=== PATIENT | male | born 1990 | race Caucasian/White ===

== ENCOUNTER 2016-09-15 14:39 | Emergency (ER) | payer BC ==
--- NOTE | 2016-09-15 14:45 | EDM.PDOC ---
ED HPI Trauma - General Chief Complaint: Upper Extremity Injury/Pain Stated Complaint: RT HAND Time Seen by Provider: 09/15/16 14:45 Source: Reports: Patient, Old records, RN, RN notes reviewed History Limitations: Reports: No limitations - History of Present Illness INITIAL COMMENTS - FREE TEXT/NARRATIVE: Arrives by POV with c/o right hand pain sustained apprx. 20 mins. 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 Denies any other injury. Symptom Onset Date: 09/15/16 Symptom Onset Time: 15:25 Occurred When: just prior to arrival Method of Injury: direct blow Severity: severe Pain/Injury Location: Reports: upper extremity, right Consciousness: Reports: no loss of consciousness, remembers incident Associated Symptoms: Reports: no other symptoms Allergies/ADRs: Allergies amphetamine aspartate [From Adderall] Allergy (Verified 09/15/16 14:45) Hallucinations amphetamine sulfate [From Adderall] Allergy (Verified 09/15/16 14:45) Hallucinations dextroamphetamine saccharate [From Adderall] Allergy (Verified 09/15/16 14:45) Hallucinations dextroamphetamine sulfate [From Adderall] Allergy (Verified 09/15/16 14:45) Hallucinations eszopiclone [From Lunesta] Allergy (Verified 09/15/16 14:45) Vomiting Home Medications: Ambulatory Orders . [No Known Home Meds] 09/15/16 [Confirmed 09/15/16] Past Medical History Psychiatric History: Reports: Addiction, Depression, Suicide attempt, Suicidal ideation Social & Family History - Family History Family Medical History: Noncontributory - Tobacco Use Years of Tobacco use: 10 Second Hand Smoke Exposure: Yes - Alcohol Use Days Per Week of Alcohol Use: 0 Number of Drinks Per Day: 6 Total Drinks Per Week: 0 - Recreational Drug Use Recreational Drug Use: No Recreational Drug Type: Reports: Marijuana/Hashish, Methamphetamine - Living Situation & Occupation Living situation: Reports: with family Occupation: unemployed Review of Systems - Review of Systems Review Of Systems: ROS reveals no pertinent complaints other than HPI. Trauma Exam - Physical Exam Exam: See Below Exam Limited By: No limitations General Appearance: Reports: alert, WD/WN, no apparent distress Head: Reports: atraumatic, normocephalic Throat/Mouth: Reports: Normal voice, No airway compromise Neck: Reports: normal inspection Respiratory Exam: Reports: no respiratory distress Cardiovascular: Reports: normal peripheral pulses Back: Reports: normal inspection Extremities: Reports: bony-point tenderness (Rt hand overlying the base of the 5th MC, with local bruising and swelling, skin is intact), pain with movement, tenderness Neurologic: Reports: no motor/sensory deficits, alert, normal mood/affect, oriented x 3 ED TRAUMA EXTREMITY PROCEDURES - Splinting Right Upper Extremity Splint site: Rt hand/wrist Pre-procedure NV status: normal Post-procedure NV status: normal Splint material: fiberglass Splint design: volar Applied & form fitted by: provider Provider post-splint application NV check: NV status normal, good position Complications: No Course - Vital Signs Last Recorded V/S: Last Vital Signs Temp 36.6 C 09/15/16 14:47 Pulse 92 09/15/16 14:47 Resp 16 09/15/16 14:47 BP 140/83 09/15/16 14:47 Pulse Ox 100 09/15/16 14:47 - Radiology Interpretation Free Text/Narrative:: Xray Rt Hand: comminuted, nondisplaced fracture of base Rt 5th MC, see Rad. report. Departure - Departure Time of Disposition: 15:38 Disposition: Home, Self-Care 01 Condition: good Clinical Impression: Closed nondisplaced fracture of fifth metacarpal bone of right hand Qualifiers: Encounter type: initial encounter Metacarpal location: base Qualified Code(s): S62.346A - Nondisplaced fracture of base of fifth metacarpal bone, right hand, initial encounter for closed fracture Instructions: Metacarpal Fracture, [id number] Forms: ED Department Discharge Additional Instructions: Rx: Tramadol 50mg Do not remove splint. Call [facility] today or tomorrow to schedule an appointment for your Right 5th Metacarpal Fracture.
[2016-09-15 14:48] VITALS: BP 140/83
--- NOTE | 2016-09-15 15:11 | CR ---
Clinical history: 25-year-old male pain and swelling ulnar aspect right hand (injury). Interpretation: Abnormal. Comminuted, slightly impacted but anatomically aligned fracture base of the fifth metacarpal hand wi th overlying soft tissue swelling. No sign of other fracture or dislocation right hand or wrist. No foreign bodies.
[2016-09-15] MEDS ORDERED: Acetaminophen 325 MG Tab PO ONE (15:45)
[2016-09-15] MEDS ORDERED: traMADol 50 MG Tab PO ONE (15:45)
== END 2016-09-15 16:08 | disposition home or self-care (01) ==
LOC: DL.ED 14:39
DX: S62.346A Nondisplaced fracture of base of fifth metacarpal bone, right hand, initial encounter for closed fracture (principal); F32.9 Major depressive disorder, single episode, unspecified; Z88.8 Allergy status to other drugs, medicaments and biological substances; Z88.2 Allergy status to sulfonamides; Z88.6 Allergy status to analgesic agent; X58.XXXA Exposure to other specified factors, initial encounter
CPT/HCPCS: 29125; 73130; 99283; A9270

== ENCOUNTER 2016-11-19 01:53 | Emergency (ER) | payer BC ==
--- NOTE | 2016-11-19 02:04 | EDM.PDOC ---
ED HPI GENERAL MEDICAL PROBLEM - General Stated Complaint: POSSIBLE BROKEN FOOT, [id number] Time Seen by Provider: 11/19/16 02:00 Source of Information: Reports: Patient History Limitations: Reports: No Limitations - History of Present Illness INITIAL COMMENTS - FREE TEXT/NARRATIVE: c/o pain to left foot for past 3 hours after dropping front tractor tire on it, ambulatory but with pain. No other reported injuries Admits 6 beers tonight Onset: today Location: Reports: lower extremity, left Quality: Reports: Throbbing Severity: moderate Associated Symptoms: Reports: no other symptoms Right Feet Pain Score (Numeric/FACES): 9 Left Feet Pain Score (Numeric/FACES): 9 - Related Data Allergies Allergy/AdvReac Type Severity Reaction Status Date / Time amphetamine aspartate Allergy Hallucinati Verified 11/19/16 02:01 [From Adderall] ons amphetamine sulfate Allergy Hallucinati Verified 11/19/16 02:01 [From Adderall] ons dextroamphetamine saccharate Allergy Hallucinati Verified 11/19/16 02:01 [From Adderall] ons dextroamphetamine sulfate Allergy Hallucinati Verified 11/19/16 02:01 [From Adderall] ons eszopiclone [From Lunesta] Allergy Vomiting Verified 11/19/16 02:01 Home Meds: Home Meds . [No Known Home Meds] 09/15/16 [History] Past Medical History Psychiatric History: Reports: Addiction, Depression, Suicide attempt, Suicidal ideation - Infectious Disease History Infectious Disease History: Reports: None Social & Family History - Family History Family Medical History: Noncontributory - Tobacco Use Smoking Status *Q: Current Every Day Smoker Years of Tobacco use: 10 Packs/Tins Daily: 1 Second Hand Smoke Exposure: Yes - Caffeine Use Caffeine Use: Reports: Coffee - Alcohol Use Days Per Week of Alcohol Use: 0 Number of Drinks Per Day: 6 Total Drinks Per Week: 0 - Recreational Drug Use Recreational Drug Use: No Recreational Drug Type: Reports: Marijuana/Hashish, Methamphetamine - Living Situation & Occupation Living situation: Reports: with family Occupation: unemployed Review of Systems - Review of Systems Review Of Systems: ROS reveals no pertinent complaints other than HPI. Trauma Exam - Physical Exam Exam: See Below Exam Limited By: No Limitations General Appearance: Reports: Alert, Anxious, Moderate Distress Head: Reports: Atraumatic, Normocephalic Eyes: Bilateral Eye: EOMI Ears: Reports: Normal External Exam Nose: Reports: Normal Inspection Throat/Mouth: Reports: Normal Inspection Neck: Reports: Full Range of Motion Respiratory Exam: Reports: No Respiratory Distress, Lungs Clear Cardiovascular: Reports: Normal Peripheral Pulses, Regular Rate, Rhythm Extremities: Pain with Movement, Tenderness (left forefoot, discolation under great toenail, no c/o pain of distal toe.) Neurologic: Reports: Alert, Oriented x 3 Skin: Reports: Normal Color, Warm/Dry. Denies: Ecchymosis (no swelling, markings or deformity of foot.) Course - Vital Signs Last Recorded V/S: Last Vital Signs Temp 95.6 F 11/19/16 02:10 Pulse 96 11/19/16 02:10 Resp 18 11/19/16 02:10 BP 149/91 H 11/19/16 02:10 Pulse Ox 99 11/19/16 02:10 - Orders/Labs/Meds Meds: Medications Discontinued Medications Generic Name Dose Route Start Last Admin Trade Name Alpa PRN Reason Stop Dose Admin Hydrocodone Bitart/Acetaminophen 1 tab 11/19/16 02:15 11/19/16 02:27 [place] 325-10 Mg PO 11/19/16 02:16 1 tab ONETIME ONE Administration - Radiology Interpretation Free Text/Narrative:: no fractures or dislocation of left foot - Re-Assessments/Exams Free Text/Narrative Re-Assessment/Exam: 11/19/16 03:34 Informed of xray findings, offered crutches for weight bearing as tolerated. Patient declined. Departure - Departure Time of Disposition: 03:31 Disposition: Home, Self-Care 01 Condition: good Clinical Impression: Contusion of left ankle or foot - Discharge Information Instructions: Foot Contusion, [id number] Additional Instructions: alternate ibuprofen 600mg with tylenol every 4 hours as needed for pain weight bearing as tolerated [facility] follow up next week if not improving
[2016-11-19 02:10] VITALS: BP 149/91
[2016-11-19] MEDS ORDERED: Acetaminophen/HYDROcodone 325-10 MG Tab PO ONE (02:15)
== END 2016-11-19 03:36 | disposition home or self-care (01) ==
LOC: DL.ED 01:53
DX: S90.02XA Contusion of left ankle, initial encounter (principal); F32.9 Major depressive disorder, single episode, unspecified; F17.210 Nicotine dependence, cigarettes, uncomplicated; Z88.8 Allergy status to other drugs, medicaments and biological substances; W20.8XXA Other cause of strike by thrown, projected or falling object, initial encounter
CPT/HCPCS: 73630; 99283; A9270